=== PATIENT | male | born 1960 | race Caucasian/White ===

== ENCOUNTER 2019-11-10 10:32 | Emergency (ER) | payer OTHER ==
[~2019-11-10] VITALS: Ht 177.8 cm; Wt 117.9 kg
[~2019-11-10 10:32] MED LIST: CARAFATE 1 GM TA1 G1 PO; NOHOMEMEDICATIONS; OMEPRAZOLE 20 M20 M1 PO
[2019-11-10 12:19] VITALS: BP 141/94
== END 2019-11-10 12:20 | disposition home or self-care (01) ==
LOC: ER 10:32
DX: R05 Cough (principal); R68.83 Chills (without fever); Z98.890 Other specified postprocedural states